=== PATIENT | male | born 1940 | race Caucasian/White ===

== ENCOUNTER 2018-11-30 07:00 | Day surgery (SDC) ==
[2018-11-30] MEDS ORDERED: LIDOCAINE 1%/PHENYLEPHRINE 1.5% BSS (SURGERY) INTRAOCULA ONE (07:23)
[2018-11-30] MEDS ORDERED: ZOFRAN 4 MG/2 ML IVP ONE (07:23)
[2018-11-30] MEDS ORDERED: DEX-MOXI-KETOR OPTH INJ 1/0.5/0.4 MG/ML IO ONE (07:23)
[2018-11-30] MEDS ORDERED: BRIMONIDINE TARTRATE 0.2% OPTH SOL OP PRN (07:23)
[2018-11-30] MEDS ORDERED: BSS WITH EPINEPHRINE OP ONE (07:23)
[2018-11-30] MEDS ORDERED: LIDOCAINE 1% 20 ML MDV ID STA (07:23)
[2018-11-30] MEDS: CYCLOGYL 2% OPTH OP PRN ×3 (07:25→07:35)
[2018-11-30] MEDS: BETADINE OPTH PREP OP PRN ×2 (07:25→07:44)
[2018-11-30] MEDS: TETRACAINE 0.5% UNIT-DOSE OP PRN ×2 (07:25→07:44)
[2018-11-30 07:33] VITALS: TEMP 98.1
[2018-11-30] MEDS ORDERED: SUBLIMAZE ONE (07:45)
[2018-11-30] MEDS ORDERED: VERSED ONE (07:45)
[2018-11-30] MEDS ORDERED: ZOFRAN 4 MG/2 ML ONE (07:45)
[2018-11-30 13:16] VITALS: BP 112/70
== END 2018-11-30 08:45 | disposition home or self-care (01) ==
LOC: SURG 07:00
PROVIDERS: ATTEND Ophthalmology
DX: H25.11 Age-related nuclear cataract, right eye (principal)
CPT/HCPCS: 82962

== ENCOUNTER 2018-12-21 06:05 | Day surgery (SDC) ==
[2018-12-21] MEDS: CYCLOGYL 2% OPTH OP PRN ×3 (06:30→06:40)
[2018-12-21] MEDS: BETADINE OPTH PREP OP PRN ×2 (06:30→06:55)
[2018-12-21] MEDS: TETRACAINE 0.5% UNIT-DOSE OP PRN ×2 (06:30→06:55)
[2018-12-21 06:41] VITALS: TEMP 98
[2018-12-21] MEDS ORDERED: BRIMONIDINE TARTRATE 0.2% OPTH SOL OP PRN (06:42)
[2018-12-21] MEDS ORDERED: ZOFRAN 4 MG/2 ML IVP ONE (06:42)
[2018-12-21] MEDS ORDERED: VERSED ONE (07:05)
[2018-12-21] MEDS ORDERED: ZOFRAN 4 MG/2 ML ONE (07:05)
[2018-12-21] MEDS ORDERED: SUBLIMAZE ONE (07:05)
[2018-12-21] MEDS ORDERED: DIPRIVAN 20 ML VIAL IVP ONE (07:05)
[2018-12-21] MEDS: DEX-MOXI-KETOR OPTH INJ 1/0.5/0.4 MG/ML IO ONE ×2 (07:06→07:13)
[2018-12-21] MEDS: LIDOCAINE 1%/PHENYLEPHRINE 1.5% BSS (SURGERY) INTRAOCULA ONE ×2 (07:06→07:13)
[2018-12-21] MEDS: BSS WITH EPINEPHRINE OP ONE ×2 (07:06→07:13)
[2018-12-22 10:16] VITALS: BP 143/89
== END 2018-12-21 08:10 | disposition home or self-care (01) ==
LOC: SURG 06:05
PROVIDERS: ATTEND Ophthalmology
DX: H25.12 Age-related nuclear cataract, left eye (principal)